=== PATIENT | female | born 1995 | race Caucasian/White ===

== ENCOUNTER 2021-07-05 11:35 | Emergency (ER) | payer OTHER ==
[~2021-07-05] VITALS: Ht 165.1 cm; Wt 81.6 kg
[2021-07-05] MEDS ORDERED: MEDROL 4MG DOSEP4 MG PO (12:33)
[2021-07-05] MEDS ORDERED: VENTOLIN HFA IN18 GM INH (12:33)
== END 2021-07-05 13:16 | disposition home or self-care (01) ==
LOC: FER 11:35
DX: J01.90 Acute sinusitis, unspecified (principal); J31.0 Chronic rhinitis; J45.909 Unspecified asthma, uncomplicated; Z88.0 Allergy status to penicillin; Z88.1 Allergy status to other antibiotic agents
CPT/HCPCS: 99283; J1100; Q0162

== ENCOUNTER 2021-07-19 07:10 | Emergency (ER) | payer OTHER ==
[~2021-07-19 07:10] MED LIST: MEDROL 4MG DOSEP4 MG PO; VENTOLIN HFA IN18 GM INH
[2021-07-19 10:53] LABS: BASOPHIL 0.3 % (0-2); EOSINOPHIL 0.1 % (0-5); HCT 44.7 % (37.0-47.0); HGB 14.3 g/dl (12.5-16.0); LYMPHOCYTE 3.4 % (15-48); MCH 28.1 pg (25.0-31.0); MONOCYTE 3.6 % (0-12); MPV 10.8 fL (6.0-9.5); NRBC 0; PLT 371 K/uL (150-400); RBC 5.08 M/uL (4.20-5.40); RDW 12.9 % (11.5-14.0); WBC 24.2 K/uL (4.0-10.5)
[2021-07-19 11:15] LABS: ALBUMIN 4.8 g/dL (3.4-5.0); BILIRUBIN - TOTAL 0.6 mg/dL (0.2-1.0); BUN/CREAT RATIO (CALC) 14.5 RATIO; CREATININE 0.76 mg/dL (0.51-0.95); GLOBULIN (CALCULATION) 4.2 g/dL; MAGNESIUM 2.1 mg/dL (1.8-2.4); POTASSIUM 4.6 mmol/L (3.5-5.1)
[2021-07-19 11:36] LABS: CORONAVIRUS 2019 SARS-COV-2 NEGATIVE (NEGATIVE); INFLUENZA A NAA NEGATIVE (NEGATIVE)
[2021-07-19 11:40] LABS: NEUTROPHIL 91.7 % (41-80)
[2021-07-19 11:53] LABS: BILIRUBIN NEGATIVE (NEGATIVE); BLOOD NEGATIVE Ery/uL (NEGATIVE); COLOR YELLOW (YELLOW); GLUCOSE (U) NORMAL (NORMAL); LEUKOCYTES NEGATIVE Leu/uL (NEGATIVE); NITRITE NEGATIVE (NEGATIVE); PROTEIN TRACE (LOW) mg/dL (NEGATIVE); SPECIFIC GRAVITY >=1.030 (1.001-1.030); UROBILINOGEN 0.2 mg/dL (0.2-1.0); pH 5.5 (5.0-9.0)
[2021-07-19 12:01] LABS: CLARITY CLOUDY (CLEAR)
[2021-07-19 12:02] LABS: AMORPHOUS URATES CRYSTALS LARGE; URINARY WBC RARE
[2021-07-19 21:05] LABS: BASOPHIL 0.2 % (0-2); EOSINOPHIL 0.1 % (0-5); HCT 36.1 % (37.0-47.0); HGB 11.5 g/dl (12.5-16.0); MCH 27.8 pg (25.0-31.0); MCHC 31.9 g/dL (32.0-36.0); MCV 87.2 fL (78.0-100.0); MONOCYTE 3.7 % (0-12); MPV 10.7 fL (6.0-9.5); NEUTROPHIL 88.4 % (41-80); NRBC 0; PLT 262 K/uL (150-400); RBC 4.14 M/uL (4.20-5.40); RDW 13.1 % (11.5-14.0); WBC 12.3 K/uL (4.0-10.5)
[2021-07-19 21:27] LABS: TOTAL CELL COUNT 100
[2021-07-19 21:28] LABS: BASOPHIL(M) 0 % (0-2); EOSINOPHIL(M) 0 % (0-5); LYMPHOCYTE(M) 6 % (15-48); MONOCYTE(M) 5 % (0-12); NEUTROPHILS(M) 89 % (41-80); PLATELET ESTIMATE NORMAL; PLATELET MORPHOLOGY N
[2021-07-19] MEDS ORDERED: METRONIDAZOLE500 MG PO (21:35)
[2021-07-19] MEDS ORDERED: ONDANSETRON ODT4 MG PO (22:08)
== END 2021-07-19 22:00 | disposition home or self-care (01) ==
LOC: FER 07:10
PROVIDERS: Emergency Medicine
DX: Q43.3 Congenital malformations of intestinal fixation (principal); D72.829 Elevated white blood cell count, unspecified; R19.7 Diarrhea, unspecified; Z20.822 Contact with and (suspected) exposure to COVID-19; Z88.8 Allergy status to other drugs, medicaments and biological substances
CPT/HCPCS: 36415; 80053; 81001; 83690; 83735; 84145; 84550; 84703; 85025; 87088; J2405; J2550; J7030; J7120; Q9967; U0002

== ENCOUNTER → 2021-09-18 | Day surgery (SDC) | payer OTHER ==
[~2021-09-18] VITALS: Ht 165.1 cm; Wt 88.5 kg
[~2021-09-18] MED LIST changes: +ALLEGRA ALLERG180 MG PO; +CARAFATE1 GM PO; +CEFDINIR300 MG PO; +LEXAPRO20 MG PO; +METRONIDAZOLE500 MG PO; +MINIPRES1 MG PO; +OFLOXACIN5 M1 AS; +ONDANSETRON ODT4 MG PO; +PROTONIX 40MG T40 MG PO; +SUDAFED30 MG PO
[2021-09-18 09:54] LABS: HCG (URINE) SCREEN NEGATIVE (NEGATIVE)
== END | disposition home or self-care (01) ==
LOC: FAS 07:30
PROVIDERS: Student in an Organized Health Care Education/Training Program
DX: K29.60 Other gastritis without bleeding (principal); K25.9 Gastric ulcer, unspecified as acute or chronic, without hemorrhage or perforation; K64.8 Other hemorrhoids; K31.9 Disease of stomach and duodenum, unspecified; Q43.3 Congenital malformations of intestinal fixation; K59.00 Constipation, unspecified; K62.5 Hemorrhage of anus and rectum; K21.9 Gastro-esophageal reflux disease without esophagitis; R19.7 Diarrhea, unspecified; D64.9 Anemia, unspecified; J45.909 Unspecified asthma, uncomplicated; F32.A Depression, unspecified; F41.9 Anxiety disorder, unspecified; F17.200 Nicotine dependence, unspecified, uncomplicated; Z88.0 Allergy status to penicillin; Z88.1 Allergy status to other antibiotic agents; Z88.8 Allergy status to other drugs, medicaments and biological substances; Z91.040 Latex allergy status; Z79.899 Other long term (current) drug therapy; Z98.61 Coronary angioplasty status; Z72.89 Other problems related to lifestyle
CPT/HCPCS: 84703; J2250; J2704; J7120

== ENCOUNTER 2021-11-20 02:07 | Emergency (ER) | payer OTHER ==
[2021-11-20 03:46] LABS: BASOPHIL 0.9 % (0-2); EOSINOPHIL 5.1 % (0-5); HGB 11.4 g/dl (12.5-16.0); LYMPHOCYTE 22.1 % (15-48); MCH 26.6 pg (25.0-31.0); MCHC 31.7 g/dL (32.0-36.0); MCV 84.1 fL (78.0-100.0); MONOCYTE 7.8 % (0-12); MPV 10.9 fL (6.0-9.5); NEUTROPHIL 63.6 % (41-80); NRBC 0; PLT 249 K/uL (150-400); RBC 4.28 M/uL (4.20-5.40); RDW 13.1 % (11.5-14.0); WBC 7.5 K/uL (4.0-10.5)
[2021-11-20 03:59] LABS: BUN/CREAT RATIO (CALC) 10.6 RATIO; CREATININE 0.66 mg/dL (0.51-0.95); POTASSIUM 3.3 mmol/L (3.5-5.1)
[2021-11-20 04:21] LABS: CORONAVIRUS 2019 SARS-COV-2 NEGATIVE (NEGATIVE); INFLUENZA A NAA NEGATIVE (NEGATIVE)
[2021-11-20] MEDS ORDERED: G TUSSIN AC LI118 ML PO ×2 (04:34→04:35)
[2021-11-20] MEDS ORDERED: PREDNISONE 20MG20 MG PO (04:34)
[2021-11-20] MEDS ORDERED: AZITHROMYCIN250 MG PO (04:34)
== END 2021-11-20 05:19 | disposition home or self-care (01) ==
LOC: FER 02:07
PROVIDERS: Internal Medicine
DX: B34.9 Viral infection, unspecified (principal); J45.909 Unspecified asthma, uncomplicated; Z20.822 Contact with and (suspected) exposure to COVID-19; Z88.1 Allergy status to other antibiotic agents
CPT/HCPCS: 36415; 71045; 80048; 84145; 85025; J1100; U0002